=== PATIENT | male | born 1940 | race Caucasian/White ===

== ENCOUNTER → 2016-12-29 | Outpatient (CLI) | payer OTHER, MEDICARE | END | disposition home or self-care (01) | LOC: PCVCCLINIC 14:10 | PROVIDERS: ATTEND Internal Medicine Cardiovascular Disease | DX: I48.91 Unspecified atrial fibrillation (principal); I25.10 Atherosclerotic heart disease of native coronary artery without angina pectoris | CPT/HCPCS: 85610 ==

== ENCOUNTER → 2017-01-26 | Outpatient (CLI) | payer OTHER, MEDICARE | END | disposition home or self-care (01) | LOC: PCVCCLINIC 14:20 | PROVIDERS: ATTEND Internal Medicine Cardiovascular Disease | DX: I63.9 Cerebral infarction, unspecified (principal) | CPT/HCPCS: 85610; G0463 ==

== ENCOUNTER → 2017-03-09 | Outpatient (CLI) | payer OTHER, MEDICARE | END | disposition home or self-care (01) | LOC: PCVCCLINIC 12:10 | PROVIDERS: ATTEND Internal Medicine Cardiovascular Disease | DX: I48.91 Unspecified atrial fibrillation (principal) | CPT/HCPCS: 85610 ==

== ENCOUNTER → 2017-03-14 | Outpatient (CLI) | payer OTHER | END | disposition home or self-care (01) | LOC: PCVCCLINIC 11:14 | PROVIDERS: ATTEND Internal Medicine Cardiovascular Disease | DX: I48.91 Unspecified atrial fibrillation (principal); I65.23 Occlusion and stenosis of bilateral carotid arteries; I10 Essential (primary) hypertension; I73.9 Peripheral vascular disease, unspecified; I63.9 Cerebral infarction, unspecified; E78.00 Pure hypercholesterolemia, unspecified | CPT/HCPCS: 85610 ==

== ENCOUNTER → 2017-03-20 | Outpatient (CLI) | payer MEDICARE | END | disposition home or self-care (01) | LOC: PCVCCLINIC 13:54 | PROVIDERS: ATTEND Internal Medicine Cardiovascular Disease | DX: I48.91 Unspecified atrial fibrillation (principal); I63.9 Cerebral infarction, unspecified; E78.00 Pure hypercholesterolemia, unspecified; I10 Essential (primary) hypertension; I73.9 Peripheral vascular disease, unspecified; I65.23 Occlusion and stenosis of bilateral carotid arteries; Z79.82 Long term (current) use of aspirin; Z87.891 Personal history of nicotine dependence | CPT/HCPCS: 80061; 85610; 93005; G0463 ==

== ENCOUNTER → 2017-06-28 | Outpatient (CLI) | payer MEDICARE ==
--- NOTE | 2017-06-28 15:41 | PCVCIMAG ---
APPROVED REPORT Study performed: 06/28/2017 14:15:48 EXAM: Limited 2D, Doppler, and color-flow Echocardiogram Patient Location: Echo lab Status: routine BSA: 1.77 HR: 83 bpmBP: 120/70 mmHg Rhythm: Atrial Fibrillation Other Information Study Quality: Adequate Indications Atrial Fibrillation Cardiomyopathy 2D Dimensions LVEF(%): 29.11 (>50%) IVSd: 11.94 (7-11mm) LVDd: 59.15 mm PWd: 12.07 (7-11mm)Ascending Ao: 41.58 (22-36mm) LVDs: 50.95 (25-40mm) Left Atrium: 44.90 (27-40mm) Aortic Root: 39.63 mm LV Single Plane 4CH: 31.94 % LV Single Plane 2CH: 30.12 %Nuñez's LVEF: 31.03 % Biplane EF: 30.5 % Volumes Left Atrial Volume (Systole) Single Plane 4CH: 123.81 mLSingle Plane 2CH: 158.32 mL LA ESV Index: 80.00 mL/m2 Tricuspid Valve TR Peak Luca.: 2.57 m/s TR Peak Gr.: 26.40 mmHg Left Ventricle Left ventricle is mildly dilated. Mild concentric left ventricular hypertrophy. Left ventricular systolic function is mildly decreased globally. LVEF is 40%. This study did not assess. Right Ventricle The right ventricle is normal size. The right ventricular systolic function is normal. Atria Left atrium is severely dilated. Right atrium is severely dilated. Aortic Valve The aortic valve is normal in structure. Mild aortic regurgitation. There is no aortic valvular stenosis. Mitral Valve The mitral valve is normal in structure. Mild mitral regurgitation. No evidence of mitral valve stenosis. Tricuspid Valve The tricuspid valve is normal in structure. Mild to moderate tricuspid regurgitation with PAP of 33 mmHg. Pulmonic Valve The pulmonary valve is normal in structure. Great Vessels The aortic root is normal in size. IVC is normal in size and collapses with >50% inspiration Pericardium There is no pericardial effusion. <Conclusion> Left ventricle is mildly dilated. Mild concentric left ventricular hypertrophy. Left ventricular systolic function is mildly decreased globally. LVEF is 40%. The right ventricle is normal size. Left atrium is severely dilated. Right atrium is severely dilated. Mild aortic regurgitation. Mild mitral regurgitation. Mild to moderate tricuspid regurgitation with PAP of 33 mmHg. There is no pericardial effusion.
== END | disposition home or self-care (01) ==
LOC: PCVCIMAG 14:27
PROVIDERS: ATTEND Internal Medicine Cardiovascular Disease
DX: I08.3 Combined rheumatic disorders of mitral, aortic and tricuspid valves (principal); I48.91 Unspecified atrial fibrillation; I25.10 Atherosclerotic heart disease of native coronary artery without angina pectoris; I10 Essential (primary) hypertension; I65.29 Occlusion and stenosis of unspecified carotid artery; E78.00 Pure hypercholesterolemia, unspecified; J44.9 Chronic obstructive pulmonary disease, unspecified; I42.9 Cardiomyopathy, unspecified; I73.9 Peripheral vascular disease, unspecified; Z86.73 Personal history of transient ischemic attack (TIA), and cerebral infarction without residual deficits; Z87.891 Personal history of nicotine dependence
CPT/HCPCS: 36415; 93005; 93308; G0463

== ENCOUNTER → 2017-09-26 | Outpatient (CLI) | payer OTHER ==
--- NOTE | 2017-09-26 12:10 | PCVCIMAG ---
APPROVED REPORT Study performed: 09/26/2017 12:12:27 EXAM: Comprehensive 2D, Doppler, and color-flow Echocardiogram Patient Location: Echo lab Status: routine BSA: 1.74 HR: 80 bpmBP: 112/64 mmHg Rhythm: Atrial Fibrillation Other Information Study Quality: Adequate Indications COPD Atrial Fibrillation Cardiomyopathy 2D Dimensions LVEF(%): 34.67 (>50%) IVSd: 11.62 (7-11mm) LVDd: 58.64 mm PWd: 11.96 (7-11mm)Ascending Ao: 41.67 (22-36mm) LVDs: 48.77 (25-40mm) Left Atrium: 42.81 (27-40mm) Aortic Root: 39.35 mm LV Single Plane 4CH: 35.97 % LV Single Plane 2CH: 41.84 %Nuñez's LVEF: 38.90 % Biplane EF: 40.8 % Volumes Left Atrial Volume (Systole) Single Plane 4CH: 101.32 mLSingle Plane 2CH: 123.12 mL LA ESV Index: 70.00 mL/m2 Aortic Valve AoV Peak Luca.: 1.24 m/s AO Peak Gr.: 6.18 mmHgLVOT Max P.68 mmHg LVOT Max V: 0.65 m/s AI Vmax: 4.78 m/s AI Wilcox: 2.79 m/s2 AI PHT: 497.12 ms Mitral Valve IVRT: 89.97 ms Pulmonary Valve PV Peak Luca.: 0.52 m/sPV Peak Gr.: 1.07 mmHg Pulmonary Vein P Vein S: 0.39 m/s P Vein D: 0.70 m/s P Vein S/D Ratio: 0.56 Tricuspid Valve TR Peak Luca.: 2.78 m/s TR Peak Gr.: 31.07 mmHg Left Ventricle The left ventricle is normal size. There is normal LV segmental wall motion. Mild concentric left ventricular hypertrophy. Left ventricular systolic function is mildly decreased. LVEF is 40-45%. This study is not technically sufficient to allow evaluation of the LV diastolic function due to atrial fibrillation. Right Ventricle The right ventricle is normal size. The right ventricular systolic function is normal. Atria Left atrium is severely dilated. Right atrium is severely dilated. Aortic Valve The aortic valve is normal in structure. Moderate aortic regurgitation. There is no aortic valvular stenosis. Mitral Valve The mitral valve is normal in structure. Moderate mitral regurgitation. No evidence of mitral valve stenosis. Tricuspid Valve The tricuspid valve is normal in structure. Moderate tricuspid regurgitation with PAP of 42 mmHg. Pulmonic Valve The pulmonary valve is normal in structure. There is no pulmonic valvular regurgitation. Great Vessels The aortic root is normal in size. IVC is normal in size and collapses <50% with inspiration. Pericardium There is no pericardial effusion. <Conclusion> The left ventricle is normal size. Mild concentric left ventricular hypertrophy. Left ventricular systolic function is mildly decreased. LVEF is 40-45%. This study is not technically sufficient to allow evaluation of the LV diastolic function due to atrial fibrillation. The right ventricle is normal size. Left atrium is severely dilated. Right atrium is severely dilated. There is no aortic valvular stenosis. Moderate aortic regurgitation. Moderate mitral regurgitation. Moderate tricuspid regurgitation with PAP of 42 mmHg. There is no pericardial effusion.
== END | disposition home or self-care (01) ==
LOC: PCVCIMAG 11:08
PROVIDERS: ATTEND Internal Medicine Cardiovascular Disease
DX: I08.3 Combined rheumatic disorders of mitral, aortic and tricuspid valves (principal); I25.10 Atherosclerotic heart disease of native coronary artery without angina pectoris; I48.91 Unspecified atrial fibrillation; I10 Essential (primary) hypertension; J44.9 Chronic obstructive pulmonary disease, unspecified; I42.9 Cardiomyopathy, unspecified
CPT/HCPCS: 93306

== ENCOUNTER → 2017-11-30 | Outpatient (CLI) | payer OTHER | END | disposition home or self-care (01) | LOC: PCVCCLINIC 09:55 | DX: I48.91 Unspecified atrial fibrillation (principal); I25.10 Atherosclerotic heart disease of native coronary artery without angina pectoris; I10 Essential (primary) hypertension; I65.29 Occlusion and stenosis of unspecified carotid artery; E78.00 Pure hypercholesterolemia, unspecified; I42.8 Other cardiomyopathies; I73.9 Peripheral vascular disease, unspecified; J44.9 Chronic obstructive pulmonary disease, unspecified; R94.31 Abnormal electrocardiogram [ECG] [EKG]; R53.83 Other fatigue; F17.210 Nicotine dependence, cigarettes, uncomplicated; Z79.899 Other long term (current) drug therapy | CPT/HCPCS: 80061; 93005; G0463 ==

== ENCOUNTER → 2018-08-02 | Outpatient (CLI) | payer OTHER | END | disposition home or self-care (01) | LOC: PCVCCLINIC 11:12 | PROVIDERS: ATTEND Internal Medicine Cardiovascular Disease | DX: I25.10 Atherosclerotic heart disease of native coronary artery without angina pectoris (principal); I73.9 Peripheral vascular disease, unspecified; I10 Essential (primary) hypertension; E78.00 Pure hypercholesterolemia, unspecified; J44.9 Chronic obstructive pulmonary disease, unspecified; R94.31 Abnormal electrocardiogram [ECG] [EKG]; I48.91 Unspecified atrial fibrillation; I77.9 Disorder of arteries and arterioles, unspecified; F17.200 Nicotine dependence, unspecified, uncomplicated; F10.10 Alcohol abuse, uncomplicated; Z79.899 Other long term (current) drug therapy | CPT/HCPCS: 80061; 93005; G0463 ==

== ENCOUNTER → 2018-09-19 | Outpatient (CLI) | payer OTHER ==
--- NOTE | 2018-09-19 13:51 | PCVCIMAG ---
EXAM: AORTOILIAC DUPLEX INDICATION: Abdominal aortic aneurysm. FINDINGS: AORTA: Suprarenal aorta measures maximum diameter of 3.3 cm. There is not a fusiform infrarenal aortic aneurysm. The infrarenal aorta measures maximum diameter of 2.6 x 3.1 cm. No aortic stenosis. RIGHT COMMON ILIAC ARTERY: Maximum diameter is 1.9 cm. No significant stenosis. RIGHT EXTERNAL ILIAC ARTERY: No significant stenosis. LEFT COMMON ILIAC ARTERY: Maximum diameter is 1.7 cm. No significant stenosis. LEFT EXTERNAL ILIAC ARTERY: No significant stenosis. IMPRESSION: 3.1 cm infrarenal abdominal aortic aneurysm compares to 2.5 cm on 2016 study. No significant aortoiliac stenosis. LOC:[id number]
--- NOTE | 2018-09-19 13:56 | PCVCIMAG ---
EXAM: BILATERAL LOWER EXTREMITY ARTERIAL DUPLEX INDICATION: Peripheral Arterial Disease. Leg pain. FINDINGS: Right Leg: Common femoral artery and profunda femoral arteries are patent. Complete occlusion throughout the [place] superficial femoral artery and popliteal artery and throughout the peroneal artery and posterior tibial artery. Anterior tibial artery is patent. Left Leg: Subtotal occlusion throughout the common femoral artery. 90% stenosis proximal fundus femoral artery. Occlusion throughout the [place] superficial femoral artery and upper popliteal artery. Refilling of the mid/distal popliteal artery. Occlusion throughout the posterior tibial artery. The anterior tibial and peroneal arteries are patent. 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 Subtotal occlusion left common femoral artery. Chronic occlusion throughout the [place] left superficial femoral artery and upper popliteal artery. Occlusion of the left posterior tibial artery. LOC:[id number]
== END | disposition home or self-care (01) ==
LOC: PCVCIMAG 09:37
PROVIDERS: ATTEND Internal Medicine Cardiovascular Disease
DX: I73.9 Peripheral vascular disease, unspecified (principal); I71.4 Abdominal aortic aneurysm, without rupture
CPT/HCPCS: 93925; 93978

== ENCOUNTER → 2019-04-29 | Outpatient (CLI) | payer OTHER | END | disposition home or self-care (01) | LOC: PCVCCLINIC 13:30 | PROVIDERS: ATTEND Internal Medicine Cardiovascular Disease | DX: I25.10 Atherosclerotic heart disease of native coronary artery without angina pectoris (principal); I42.8 Other cardiomyopathies; E78.00 Pure hypercholesterolemia, unspecified; I10 Essential (primary) hypertension; I48.91 Unspecified atrial fibrillation; J44.9 Chronic obstructive pulmonary disease, unspecified; R53.83 Other fatigue; R09.89 Other specified symptoms and signs involving the circulatory and respiratory systems; F17.210 Nicotine dependence, cigarettes, uncomplicated | CPT/HCPCS: 36415; 80061; 93005; G0463 ==

== ENCOUNTER → 2019-06-04 | Outpatient (CLI) | payer OTHER ==
--- NOTE | 2019-06-04 15:47 | PCVCIMAG ---
EXAM: BILATERAL CAROTID DUPLEX INDICATION: Carotid Occlusive Disease. FINDINGS: Doppler Measurements (centimeters per second): RIGHT: Peak CCA-41, Peak ECA-86, Diastolic ICA-19, Peak ICA-64, ICA/CCA Ratio-1.6. LEFT: Peak CCA-58, Peak ECA-82, Diastolic ICA-23, Peak ICA-61, ICA/CCA Ratio-1.1. RIGHT CAROTID: The carotid bulb has moderate plaque. The proximal internal carotid artery shows <40% stenosis. The common carotid artery shows no significant stenosis. The external carotid artery shows no significant stenosis. LEFT CAROTID: The carotid bulb has moderate plaque. The proximal internal carotid artery shows <40% stenosis. The common carotid artery shows no significant stenosis. The external carotid artery shows no significant stenosis. Antegrade flow in both vertebral arteries. IMPRESSION: <40% stenosis of the right internal carotid artery with moderate plaque. <40% stenosis of the left internal carotid artery with moderate plaque. No change since September 2016 study. LOC:[id number]
== END | disposition home or self-care (01) ==
LOC: PCVCIMAG 14:11
PROVIDERS: ATTEND Internal Medicine Cardiovascular Disease
DX: I65.23 Occlusion and stenosis of bilateral carotid arteries (principal)
CPT/HCPCS: 93880